=== PATIENT | female | born 1995 ===

== ENCOUNTER 2021-07-26 10:37 | Outpatient (CLI) | payer OTHER | END 2021-07-26 11:37 | disposition home or self-care (01) | LOC: PRENATAL 10:37 | PROVIDERS: ATTEND Obstetrics & Gynecology Maternal & Fetal Medicine | DX: O36.80X9 Pregnancy with inconclusive fetal viability, other fetus (principal); Z36.0 Encounter for antenatal screening for chromosomal anomalies; Z3A.14 14 weeks gestation of pregnancy ==

== ENCOUNTER 2021-08-30 07:36 | Outpatient (CLI) | payer OTHER | END 2021-08-30 09:00 | disposition home or self-care (01) | LOC: PRENATAL 07:36 | PROVIDERS: ATTEND Obstetrics & Gynecology Maternal & Fetal Medicine | DX: O35.0XX0 Maternal care for (suspected) central nervous system malformation in fetus, not applicable or unspecified (principal); O35.3XX0 Maternal care for (suspected) damage to fetus from viral disease in mother, not applicable or unspecified; O99.891 Other specified diseases and conditions complicating pregnancy; Z3A.19 19 weeks gestation of pregnancy; Z88.0 Allergy status to penicillin ==

== ENCOUNTER 2021-11-29 09:07 | Outpatient (CLI) | payer OTHER | END 2021-11-29 10:04 | disposition home or self-care (01) | LOC: PRENATAL 09:07 | PROVIDERS: ATTEND Obstetrics & Gynecology Maternal & Fetal Medicine | DX: O26.849 Uterine size-date discrepancy, unspecified trimester (principal); O35.0XX0 Maternal care for (suspected) central nervous system malformation in fetus, not applicable or unspecified; O99.891 Other specified diseases and conditions complicating pregnancy; Z88.0 Allergy status to penicillin; Z3A.32 32 weeks gestation of pregnancy ==